=== PATIENT | female | born 1980 | race Caucasian/White ===

== ENCOUNTER 2017-12-02 07:07 | Inpatient (IN) | payer OTHER ==
[2017-12-02 08:17] LABS: Basophils # (Auto) 0.1 K/mm3 (0.0-0.1); Basophils % (Auto) 0.6 % (0.0-1.8); Eosinophils % (Auto) 0.4 % (0.0-4.3); Hematocrit 40.9 % (30.3-42.9); Hemoglobin 14.1 gm/dl (10.1-14.3); Lymphocytes # (Auto) 1.2 K/mm3 (1.2-5.4); Lymphocytes % (Auto) 11.3 % (13.4-35.0); Mean Corpuscular HGB Conc 35 % (30-34); Mean Corpuscular Hemoglobin 32 pg (28-32); Mean Corpuscular Volume 91 fl (79-97); Monocytes # (Auto) 0.8 K/mm3 (0.0-0.8); Monocytes % (Auto) 7.3 % (0.0-7.3); Platelet Count 317 K/mm3 (140-440); Red Blood Count 4.48 M/mm3 (3.65-5.03); Red Cell Distribution Width 13.3 % (13.2-15.2)
[2017-12-02 08:31] LABS: Bilirubin,Urine NEG (Negative); Blood,Urine NEG (Negative); Color,Urine Yellow (Yellow); Nitrite,Urine NEG (Negative); Protein,Urine <15 mg/dL mg/dL (Negative)
[2017-12-02 08:31] LABS: Alanine Aminotransferase 362 units/L (7-56); Albumin 4.7 g/dL (3.9-5); BUN/Creatinine Ratio 18; Blood Urea Nitrogen 11 mg/dL (7-17); Calcium 9.4 mg/dL (8.4-10.2); Hemolysis Index 4; Lipase 46 units/L (13-60)
[2017-12-02] MEDS ORDERED: ZOFRAN IV ONE (10:46)
[2017-12-02] MEDS ORDERED: NACL 0.9% 1000 ML 1,000 ML IV ONE ×2 (10:46→15:00)
[2017-12-02] MEDS ORDERED: SUBLIMAZE IV ONE (10:46)
--- NOTE | 2017-12-02 10:49 | Emergency Department Report ---
Blank Doc - Documentation Documentation: Patient is 37 years old female presented to the ER with 2 day history of right upper quadrant pain and epigastric pain that radiated to her back. Patient stated that her pain associated with nausea and vomiting. She had one episode last month, patient went to [facility] and she did not wait for her results. Patient admitted of drinking alcohol on Saturday. No history of gallbladder stone before or history of pancreatitis. On exam patient does have a right upper quadrant tenderness and epigastric tenderness there is no guarding or rebound tenderness. Patient looks dehydrated. After reviewing her labs which show increase in liver enzymes and a normal lipase patient will need IV fluids and analgesia and nausea medicine. I order a CT abdomen and pelvis with IV contrast for further management patient needed to be moved to the main ED.
[2017-12-02] MEDS ORDERED: NACL ONE (11:12)
--- NOTE | 2017-12-02 13:49 | Cat Scan Report ---
CT ABDOMEN PELVIS WITH CONTRAST: HISTORY: abdominal pain. COMPARISON: none. TECHNIQUE: Helical CT in 1.25mm intervals following IV contrast. Sagittal and coronal reconstructions. FINDINGS: Lung bases: Normal. Liver: Normal. Biliary system: Cholelithiasis is identified. A 1.5 cm stone is noted near the gallbladder neck. Smaller stones are identified in the gallbladder fundus. There is mild gallbladder wall edema and trace pericholecystic fluid. The common bile duct is dilated up to 1.1 cm. No calcified gallstones are identified within the common bile duct. No intrahepatic biliary dilatation. Pancreas: Normal. Spleen: Normal. Kidneys/ureters/bladder: Normal. Adrenal glands: Normal. Aorta: Normal. Intestines: Unremarkable given no oral contrast was administered. No evidence for obstruction or focal inflammation. Appendix: Normal. Pelvic viscera: The uterus is unremarkable. No uterine mass is appreciated. Small bilateral ovarian cysts are identified. A peripherally enhancing cyst in the right ovary measures 1.9 cm. A simple left ovarian cyst measures 1.2 cm. Left ovarian vein varicosity is noted. Ascites: None. Adenopathy: None. Musculoskeletal: Normal. IMPRESSION: Cholelithiasis. There is borderline gallbladder distention and mild gallbladder wall edema and trace pericholecystic fluid. Correlate for early acute cholecystitis. The common bile duct is also dilated up to 1.1 cm although no definite common bile duct stones are detected on CT. Bilateral ovarian cysts as described. Left ovarian vein varicosity.
--- NOTE | 2017-12-02 15:06 | Emergency Department Report ---
ED Abdominal Pain HPI - General Chief Complaint: Abdominal Pain Stated Complaint: ABD PAIN Time Seen by Provider: 12/02/17 10:41 Source: patient Mode of arrival: Ambulatory Limitations: No Limitations - History of Present Illness Initial Comments: This is a 37-year-old female nontoxic, well nourished in appearance, no acute signs of distress presents to the ED with c/o of abdominal pain x2 days. Patient describes pain as aching and sharp with level of 10/10. Patient stated pain is in the right upper quad and epigastric region radiating to the back. Patient also states has associated with nausea or vomiting. Patient had symptoms last month and went to the hospital but eloped. Patient did say she had several alcoholic drinks and Saturday. Patient denies past medical history of gallbladder stone or pancreatitis. He denies any chest pain, shortness of breath, fever, chills, numbness, tingling, headache or stiff neck. Patient denies any allergies or significant past medical history. Patient is Croatian- speaking and daughter is present on exam and interview. MD Complaint: abdominal pain -: days(s) (2) Location: RUQ, epigastric Radiation: back Severity: moderate Severity scale (0 -10): 10 Quality: aching, sharp Consistency: constant Improves With: nothing Worsens With: nothing Associated Symptoms: nausea, vomiting. denies: diarrhea, fever, chills, constipation, dysuria, hematemesis, hematochezia, melena, hematuria, anorexia, syncope - Related Data Home Medications Medication Instructions Recorded Confirmed Last Taken Ibuprofen [Motrin] 400 mg PO Q6H PRN 12/02/17 12/02/17 Unknown Allergies Allergy/AdvReac Type Severity Reaction Status Date / Time No Known Allergies Allergy Verified 12/02/17 10:47 ED Review of Systems ROS: Stated complaint: ABD PAIN Other details as noted in HPI Constitutional: denies: chills, fever Eyes: denies: eye pain, eye discharge, vision change ENT: denies: ear pain, throat pain Respiratory: denies: cough, shortness of breath, wheezing Cardiovascular: denies: chest pain, palpitations Endocrine: no symptoms reported Gastrointestinal: abdominal pain. denies: nausea, diarrhea Genitourinary: denies: urgency, dysuria, discharge Musculoskeletal: denies: back pain, joint swelling, arthralgia Skin: denies: rash, lesions Neurological: denies: headache, weakness, paresthesias Psychiatric: denies: anxiety, depression Hematological/Lymphatic: denies: easy bleeding, easy bruising ED Past Medical Hx - Past Medical History Previous Medical History?: Yes Additional medical history: Vaginal delivery x 4 - Surgical History Past Surgical History?: No - Social History Smoking Status: Former Smoker Substance Use Type: Alcohol, Marijuana - Medications Home Medications: Home Medications Medication Instructions Recorded Confirmed Last Taken Type Ibuprofen [Motrin] 400 mg PO Q6H PRN 12/02/17 12/02/17 Unknown History ED Physical Exam - General Limitations: No Limitations General appearance: alert, in no apparent distress - Head Head exam: Present: atraumatic, normocephalic - Eye Eye exam: Present: normal appearance, PERRL, EOMI Pupils: Present: normal accommodation - ENT ENT exam: Present: normal exam, normal orophraynx, mucous membranes moist, TM's normal bilaterally, normal external ear exam - Neck Neck exam: Present: normal inspection, full ROM. Absent: tenderness, meningismus, lymphadenopathy, thyromegaly - Respiratory Respiratory exam: Present: normal lung sounds bilaterally. Absent: respiratory distress, wheezes, rales, rhonchi, stridor, chest wall tenderness, accessory muscle use, decreased breath sounds, prolonged expiratory - Cardiovascular Cardiovascular Exam: Present: regular rate, normal rhythm, normal heart sounds. Absent: irregular rhythm, systolic murmur, diastolic murmur, rubs, gallop - GI/Abdominal GI/Abdominal exam: Present: soft, tenderness (RUQ ), normal bowel sounds. Absent: distended, guarding, rebound, rigid, diminished bowel sounds - Expanded GI/Abdominal Exam Expanded GI/Abdominal exam: Present: Wolff's sign. Absent: psoas sign, obturator sign, Rovsing's sign, tenderness at Mcburney's Point - Rectal Rectal exam: Present: deferred - Extremities Exam Extremities exam: Present: normal inspection, full ROM, normal capillary refill. Absent: tenderness, pedal edema, joint swelling, calf tenderness - Back Exam Back exam: Present: normal inspection, full ROM. Absent: tenderness, CVA tenderness (R), CVA tenderness (L), muscle spasm, paraspinal tenderness, vertebral tenderness, rash noted - Neurological Exam Neurological exam: Present: alert, oriented X3, CN II-XII intact, normal gait, reflexes normal - Psychiatric Psychiatric exam: Present: normal affect, normal mood - Skin Skin exam: Present: warm, dry, intact, normal color. Absent: rash ED Course Vital Signs 12/02/17 12/02/17 07:42 14:36 Temperature 98 F 98.9 F Pulse Rate 99 H 76 Respiratory 16 16 Rate Blood Pressure 108/74 Blood Pressure 80/52 [Left] O2 Sat by Pulse 99 100 Oximetry - Reevaluation(s) Reevaluation #1: 12/02/17 15:07 Patient is speaking in full sentences with no signs of distress noted. - Consultations Consultation #1: 12/02/17 15:07 Patient has been consulted with Dr. Sierra about patient history, physical exam , and labs and examined and screened patient and agrees to ED plan of care and discharge plan of care. Consultation #2: 12/02/17 15:07 Dr. Vásquez (general surgeon) was consulted about patient history, physical exam , and labs/imaging studies and stated he will assess patient and admit patient. ED Medical Decision Making - Lab Data Result diagrams: 12/02/17 07:56 12/02/17 07:56 - Medical Decision Making This is a 37-year-old female that presents with cholelithiasis and cholecystitis. Patient is stable and was examined by me and Dr. Sierra. Labs obtain CT with contrast indicates cholelithiasis with acute cholecystitis. Dictated by radiologist. Patient was notified of CT findings With no questions noted by the patient. Patient's daughter is currently present at the bedside for translation. Dr. Vásquez was consulted and accepts patient to his services. At time of admission, the patient does not seem toxic or ill in appearance. No acute signs of distress noted. Patient agrees to admission treatment plan of care. No further questions noted by the patient. Critical care attestation.: If time is entered above; I have spent that time in minutes in the direct care of this critically ill patient, excluding procedure time. ED Disposition Clinical Impression: Cholecystitis Cholelithiasis Qualifiers: Cholelithiasis location: gallbladder Cholecystitis presence: with cholecystitis Cholecystitis acuity: acute Biliary obstruction: without biliary obstruction Qualified Code(s): K80.00 - Calculus of gallbladder with acute cholecystitis without obstruction Disposition: DC-09 OP ADMIT IP TO THIS HOSP Is pt being admited?: Yes Condition: Stable Instructions: Abdominal Pain (ED) Referrals: PRIMARY CARE, [Primary Care Provider] - 3-5 Days
[2017-12-02] MEDS ORDERED: MILK OF MAGNESIA PO PRN (15:54)
[2017-12-02] MEDS ORDERED: ZOFRAN IV PRN (15:54)
[2017-12-02] MEDS ORDERED: MORPHINE IV PRN (15:54)
[2017-12-02] MEDS ORDERED: NORCO 5/325 PO PRN (15:54)
[2017-12-02] MEDS ORDERED: TYLENOL PO PRN (15:54)
[2017-12-02] MEDS ORDERED: DULCOLAX PR PRN (15:54)
[2017-12-02] MEDS ORDERED: D5W/0.45% NACL/KCL 20 MEQ 20 MEQ/1,000 ML BAG IV SCH (16:00)
--- NOTE | 2017-12-02 16:05 | Consultation ---
History of Present Illness Consult date: 12/02/17 Reason for consult: abdominal pain Requesting physician: BLANCA RHODES Chief complaint: abdominal pain - History of present illness History of present illness: 37yo F with 1 month history of intermittent RUQ pain presents with acute onset of RUQ after dinner last night. Pain radiates into the back. +C/N/V. No F. Usually pain will last 2 days. Denies any other issues. Past History Past Medical History: No medical history Past Surgical History: No surgical history Social history: other (very occasional alcohol and smoking. works in [employer] at night) Family history: no significant family history Medications and Allergies Allergies Allergy/AdvReac Type Severity Reaction Status Date / Time No Known Allergies Allergy Verified 12/02/17 10:47 Home Medications Medication Instructions Recorded Confirmed Last Taken Type Ibuprofen [Motrin] 400 mg PO Q6H PRN 12/02/17 12/02/17 Unknown History Review of Systems - Constitutional chills, no fever, no sweats, no night sweats - EENT Ears, nose, mouth and throat: no nasal congestion, no sinus pressure, no sore throat, no headache - Cardiovascular no chest pain - Respiratory shortness of breath (due to RUQ pain), no cough, no cough with sputum - Gastrointestinal abdominal pain (RUQ), nausea (none now), vomiting, no diarrhea, no hematemesis, no BRBPR, no melena, no hematochezia, no heartburn, no jaundice - Genitourinary Genitourinary: no dysuria - Muskuloskeletal other (right sided back pain) - Integumentary no rash, no jaundice Exam Vital Signs Temp Pulse Resp BP Pulse Ox 98 F 99 H 16 108/74 99 12/02/17 07:42 12/02/17 07:42 12/02/17 07:42 12/02/17 07:42 12/02/17 07:42 - General physical appearance Positive: well developed, well nourished, no distress, no pain - Eyes Positive: normal occular movement, other (anicteric) - ENT Positive: other (slightly yellow sublingual area?) - Respiratory Positive: normal expansion, normal respiratory effort, clear to auscultation - Cardiovascular Rhythm: regular - Abdomen Abdomen: Present: soft, tender (minimal on right side - more upper than lower), bowel sounds hypoactive. Absent: distended, guarding, rigid, surgical scars - Genitourinary Female Genitourinary: deferred - Integumentary no rash - Neurologic Neurologic: alert and oriented to time, place and person, motor strength and sensation are grossly intact - Psychiatric Psychiatric: appropriate mood/affect, intact judgment & insight Results - Labs 12/02/17 07:56 12/02/17 07:56 Abnormal lab results 12/02/17 12/02/17 12/02/17 Range/Units 07:56 07:56 08:01 MCHC 35 H (30-34) % Lymph % (Auto) 11.3 L (13.4-35.0) % Seg Neutrophils % 80.4 H (40.0-70.0) % Seg Neutrophils # 8.8 H (1.8-7.7) K/mm3 Chloride 95.5 L (98-107) mmol/L Creatinine 0.6 L (0.7-1.2) mg/dL Glucose 137 H (65-100) mg/dL Total Bilirubin 1.90 H (0.1-1.2) mg/dL AST 514 H (5-40) units/L ALT 362 H (7-56) units/L Alkaline Phosphatase 214 H (35-129) units/L Urine pH 8.0 H (5.0-7.0) Diabetes panel 12/02/17 Range/Units 07:56 Sodium 138 (137-145) mmol/L Potassium 4.5 (3.6-5.0) mmol/L Chloride 95.5 L (98-107) mmol/L Carbon Dioxide 28 (22-30) mmol/L BUN 11 (7-17) mg/dL Creatinine 0.6 L (0.7-1.2) mg/dL Glucose 137 H (65-100) mg/dL Calcium 9.4 (8.4-10.2) mg/dL AST 514 H (5-40) units/L ALT 362 H (7-56) units/L Alkaline Phosphatase 214 H (35-129) units/L Total Protein 7.6 (6.3-8.2) g/dL Albumin 4.7 (3.9-5) g/dL Calcium panel 12/02/17 Range/Units 07:56 Calcium 9.4 (8.4-10.2) mg/dL Albumin 4.7 (3.9-5) g/dL Pituitary panel 12/02/17 Range/Units 07:56 Sodium 138 (137-145) mmol/L Potassium 4.5 (3.6-5.0) mmol/L Chloride 95.5 L (98-107) mmol/L Carbon Dioxide 28 (22-30) mmol/L BUN 11 (7-17) mg/dL Creatinine 0.6 L (0.7-1.2) mg/dL Glucose 137 H (65-100) mg/dL Calcium 9.4 (8.4-10.2) mg/dL Adrenal panel 12/02/17 Range/Units 07:56 Sodium 138 (137-145) mmol/L Potassium 4.5 (3.6-5.0) mmol/L Chloride 95.5 L (98-107) mmol/L Carbon Dioxide 28 (22-30) mmol/L BUN 11 (7-17) mg/dL Creatinine 0.6 L (0.7-1.2) mg/dL Glucose 137 H (65-100) mg/dL Calcium 9.4 (8.4-10.2) mg/dL Total Bilirubin 1.90 H (0.1-1.2) mg/dL AST 514 H (5-40) units/L ALT 362 H (7-56) units/L Alkaline Phosphatase 214 H (35-129) units/L Total Protein 7.6 (6.3-8.2) g/dL Albumin 4.7 (3.9-5) g/dL - Imaging CT scan - abdomen: report reviewed, image reviewed Assessment and Plan - Patient Problems (1) Cholecystitis Current Visit: Yes Status: Acute Plan to address problem: I think the patient most likely has an acute exacerbation of her chronic cholecytitis. Does not appear ill or toxic. May have sludge or stone in duct. Will recheck labs in AM. If rising, will get MRCP and GI consult. Will also get US today to better assess GB and CBD. If labs improving, then plan for lap charla with IOC. Will discuss in detail tomorrow with official educational sign language interpreter. Today , family member assisted with translation. Time=60min (2) Elevated LFTs Current Visit: Yes Status: Acute Plan to address problem: possibly sludge or stone in duct. Will get better assessment with US today. Repeat labs in AM.
--- NOTE | 2017-12-02 17:04 | Ultrasound Report ---
FINAL REPORT EXAM: US ABDOMEN LIMITED HISTORY: RUQ pain TECHNIQUE: Right upper quadrant ultrasound PRIORS: CT 12/02/2017 FINDINGS: Examination of the gallbladder demonstrates numerous echogenic mobile foci internally consistent with gallstones. The gallbladder wall is mildly thickened measuring 3.2 mm. There is no evidence for distention or pericholecystic fluid. No sonographic Wolff's sign is elicited. Common bile duct is mildly dilated in diameter measuring 7.4 mm. No evidence for calculus within the common bile duct is seen. The liver is normal and homogeneous in echogenicity without focal abnormality or intrahepatic biliary dilatation. The pancreas is normal in thickness without focal abnormality or pancreatic duct dilatation. The head and distal pancreatic tail is partially obscured due to bowel gas. The aorta is normal in diameter measuring 1.7 cm in its proximal portion. The right kidney is normal in size without calculi or hydronephrosis. Right kidney measures 10.5 cm in craniocaudal length. IMPRESSION: 1. Thickened gallbladder wall. Gallbladder contains numerous mobile gallstones 2. Dilated common bile duct with no evidence for obstructing choledocholithiasis
[2017-12-02] MEDS ORDERED: PEPCID IV ONE (22:19)
[2017-12-02] MEDS: PEPCID IV SCH (22:21)
[2017-12-03 05:23] LABS: Alanine Aminotransferase 385 units/L (7-56); Albumin 3.4 g/dL (3.9-5); BUN/Creatinine Ratio 15; Blood Urea Nitrogen 9 mg/dL (7-17); Calcium 7.6 mg/dL (8.4-10.2); Hemolysis Index 8; Lipase 50 units/L (13-60)
[2017-12-03] MEDS: PEPCID IV SCH (10:29)
--- NOTE | 2017-12-03 15:26 | Discharge Summary ---
Providers - Providers Date of Admission: 12/02/17 15:54 Date of discharge: 12/03/17 Attending physician: LUCY DOBBS MD Primary care physician: MENTAL HEALTH THERAPIST Hospitalization Reason for admission: abdominal pain Pertinent studies: CT abd/pelvis and RUQ US Procedures: none Hospital course: She had an uneventful hospital course. Repeat labs in the morning showed normalization. I examined and interviewed the patient twice on the day of discharge. The 1st time, I spoke via spanish medical interpreter number [id number]. Patient reported that her pain result. She was hungry and thirsty. She previously mentioned on the day of admission that she would like to avoid surgery. I confirm that with her again. I offered her 2 options. We can try lifestyle and dietary changes. However, if her pain comes back, then we should consider surgery. Or, we can just move forward with surgery. We discussed the risks and benefits of both. She elected to try dietary changes. Therefore, I started her on a full liquid diet and I told her I would come back to reassess her in the afternoon. In the afternoon, I spoke via spanish medical interpreter number [id number]. Patient reported she had no problems with the liquids. She had no recurrence of pain. As promised, I gave printed out information on foods that are generally safe for the gallbladder and foods to avoid. I gave this to her daughter who is Kinyarwanda- speaking and confirm that she understood. Patient confirmed that she would like to go home. Patient was discharged home. No prescriptions were given. Disposition: TO HOME OR SELFCARE - Discharge Diagnoses (1) Cholecystitis Status: Acute Comment: Acute exacerbation on chronic cholecystitis (2) Elevated LFTs Status: Acute Comment: Resolving Core Measure Documentation - Palliative Care Palliative Care/ Comfort Measures: Not Applicable - Core Measures Any of the following diagnoses?: none - VTE Discharge Requirements Deep Vein Thrombosis/Pulmonary Embolism Present on Admission: No Exam - Constitutional Vitals: Temp Pulse Resp BP Pulse Ox 98.2 F 71 18 87/53 96 12/03/17 07:42 12/03/17 07:42 12/03/17 07:42 12/03/17 07:42 12/03/17 07:42 General appearance: Present: no acute distress, well-nourished - EENT Eyes: Present: PERRL, EOM intact. Absent: scleral icterus - Respiratory Respiratory effort: normal - Cardiovascular Rhythm: regular - Abdominal General gastrointestinal: Present: soft, non-tender, non-distended - Integumentary Integumentary: Present: clear, warm, dry - Psychiatric Psychiatric: appropriate mood/affect, intact judgment & insight - Neurologic Neurologic: CNII-XII intact, moves all extremities Plan Follow up with: PRIMARY CARE, [Primary Care Provider] - 3-5 Days
[2017-12-03 16:22] VITALS: BP 101/58
== END 2017-12-03 20:24 | disposition home or self-care (01) | DRG 446 ==
LOC: ED 07:07 → 3B-SURG 15:54
PROVIDERS: ADMIT Surgery; ATTEND Surgery
DX: K81.9 Cholecystitis, unspecified (principal); Z87.891 Personal history of nicotine dependence
CPT/HCPCS: 36415; 74177; 76705; 80053; 81001; 82150; 83690; 84703; 85025; 96374; 96375; J2405; J3010; J7030; Q9967

== ENCOUNTER 2017-12-05 02:03 | Inpatient (IN) | payer SELFPAY ==
[2017-12-05 04:35] LABS: Basophils % (Auto) 0.3 % (0.0-1.8); Eosinophils # (Auto) 0.1 K/mm3 (0.0-0.4); Eosinophils % (Auto) 0.7 % (0.0-4.3); Hematocrit 42.3 % (30.3-42.9); Hemoglobin 14.3 gm/dl (10.1-14.3); Lymphocytes # (Auto) 1.4 K/mm3 (1.2-5.4); Lymphocytes % (Auto) 8.9 % (13.4-35.0); Mean Corpuscular HGB Conc 34 % (30-34); Mean Corpuscular Hemoglobin 31 pg (28-32); Mean Corpuscular Volume 93 fl (79-97); Monocytes # (Auto) 0.7 K/mm3 (0.0-0.8); Monocytes % (Auto) 4.7 % (0.0-7.3); Platelet Count 353 K/mm3 (140-440); Red Blood Count 4.57 M/mm3 (3.65-5.03); Red Cell Distribution Width 13.4 % (13.2-15.2)
[2017-12-05 04:57] LABS: Alanine Aminotransferase 264 units/L (7-56); BUN/Creatinine Ratio 10; Blood Urea Nitrogen 6 mg/dL (7-17); Calcium 8.4 mg/dL (8.4-10.2); Hemolysis Index 6
--- NOTE | 2017-12-05 05:30 | XRay Report ---
FINAL REPORT EXAM: XR CHEST ROUTINE 2V HISTORY: sob TECHNIQUE: PA and lateral views of the chest were submitted. FINDINGS: Heart size and mediastinum appear normal. The lungs are clear. Pleural fluid is not seen. The bones and soft tissues are unremarkable. IMPRESSION: Within normal limits.
[2017-12-05] MEDS ORDERED: ZOFRAN IV ONE (06:43)
[2017-12-05] MEDS ORDERED: NACL 0.9% 1000 ML 1,000 ML IV ONE (06:43)
--- NOTE | 2017-12-05 06:48 | Emergency Department Report ---
ED Abdominal Pain HPI - General Chief Complaint: Abdominal Pain Stated Complaint: ABD PAIN Time Seen by Provider: 12/05/17 06:36 Source: patient, family Mode of arrival: Ambulatory Limitations: No Limitations - History of Present Illness Initial Comments: Patient is 37 years old female presented to the ER with abdominal pain nausea and vomiting. Patient was recently discharged from the hospital with a diagnosis of acute cholecystitis. Our surgeon give had 2 options either to do surgery or dietary modification. Patient elected to do a battery and lifestyle modification. Patient stated that this is not helping her and her pain is just getting worse and she is ready for surgery now. MD Complaint: abdominal pain -: Gradual Location: RUQ, epigastric Radiation: none Migration to: no migration Severity: moderate Severity scale (0 -10): 6 Quality: stabbing Consistency: constant Associated Symptoms: nausea, vomiting - Related Data Home Medications Medication Instructions Recorded Confirmed Last Taken Ibuprofen [Motrin] 400 mg PO Q6H PRN 12/02/17 12/02/17 Unknown Allergies Allergy/AdvReac Type Severity Reaction Status Date / Time No Known Allergies Allergy Verified 12/02/17 10:47 ED Review of Systems ROS: Stated complaint: ABD PAIN Other details as noted in HPI Comment: All other systems reviewed and negative Respiratory: denies: cough, shortness of breath Cardiovascular: denies: chest pain Gastrointestinal: abdominal pain, nausea, vomiting. denies: diarrhea Neurological: denies: headache, weakness, numbness ED Past Medical Hx - Past Medical History Previous Medical History?: No Hx Congestive Heart Failure: No Hx Diabetes: No Hx Asthma: No Hx COPD: No Additional medical history: Vaginal delivery x 4 - Surgical History Past Surgical History?: No - Social History Smoking Status: Never Smoker Substance Use Type: None - Medications Home Medications: Home Medications Medication Instructions Recorded Confirmed Last Taken Type Ibuprofen [Motrin] 400 mg PO Q6H PRN 12/02/17 12/02/17 Unknown History ED Physical Exam - General Limitations: No Limitations General appearance: alert, in no apparent distress - Head Head exam: Present: atraumatic, normocephalic - Eye Eye exam: Present: normal appearance - ENT ENT exam: Present: mucous membranes dry - Neck Neck exam: Present: normal inspection, full ROM. Absent: tenderness, meningismus, lymphadenopathy - Respiratory Respiratory exam: Present: normal lung sounds bilaterally - Cardiovascular Cardiovascular Exam: Present: regular rate, normal rhythm, normal heart sounds - GI/Abdominal GI/Abdominal exam: Present: soft, tenderness (right upper quadrant and epigastric), normal bowel sounds. Absent: guarding, rebound, rigid, mass, bruit , pulsatile mass - Extremities Exam Extremities exam: Present: normal inspection, full ROM, normal capillary refill - Back Exam Back exam: Present: normal inspection, full ROM. Absent: tenderness, CVA tenderness (R), CVA tenderness (L), muscle spasm, paraspinal tenderness - Neurological Exam Neurological exam: Present: alert, oriented X3, CN II-XII intact, normal gait - Skin Skin exam: Present: warm, dry, intact ED Course Vital Signs 12/05/17 12/05/17 12/05/17 03:40 05:54 05:55 Temperature 98 F 98.8 F Pulse Rate 85 75 Respiratory 18 20 20 Rate Blood Pressure 105/70 Blood Pressure 98/45 [Left] O2 Sat by Pulse 99 100 Oximetry ED Medical Decision Making - Lab Data Result diagrams: 12/05/17 04:02 12/05/17 04:02 - Medical Decision Making Discussed with Dr. Barney, I presented the patient to him, Dr. Barney is coming to evaluate the patient in the ER. Critical care attestation.: If time is entered above; I have spent that time in minutes in the direct care of this critically ill patient, excluding procedure time. ED Disposition Clinical Impression: Acute cholecystitis Disposition: OP ADMIT IP TO THIS HOSP Is pt being admited?: Yes Condition: Stable Instructions: Abdominal Pain (ED) Referrals: PRIMARY CARE, [Primary Care Provider] - 3-5 Days
[2017-12-05] MEDS ORDERED: ZOSYN/NS 3.375GM/50ML 3.375 GM/50 ML BAG IV SCH (08:00)
[2017-12-05] MEDS ORDERED: TYLENOL PO PRN (10:50)
[2017-12-05] MEDS ORDERED: MORPHINE IV PRN (10:50)
[2017-12-05] MEDS ORDERED: MILK OF MAGNESIA PO PRN (10:50)
[2017-12-05] MEDS ORDERED: DULCOLAX PR PRN (10:50)
[2017-12-05] MEDS ORDERED: ZOFRAN IV PRN (10:50)
[2017-12-05] MEDS ORDERED: NORCO 5/325 PO PRN (10:50)
--- NOTE | 2017-12-05 11:03 | History and Physical Report ---
History of Present Illness Date of examination: 12/05/17 Date of admission: 12/05/2017 Chief complaint: recurrent abdominal pain History of present illness: 37yo F that is well known to me. She was recently admitted to the hospital for acute exaceration of chronic cholecystitis. Her pain resolved the next day and she wanted to try dietary changes instead of surgery. Daughter reports that she had the same meal last night that she had before and the pain came back. Pt is now ready for surgery. No other changes in symptoms. 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 denies: smoking Family history: no significant family history Medications and Allergies Allergies Allergy/AdvReac Type Severity Reaction Status Date / Time No Known Allergies Allergy Verified 12/02/17 10:47 Home Medications Medication Instructions Recorded Confirmed Last Taken Type Ibuprofen [Motrin] 400 mg PO Q6H PRN 12/02/17 12/05/17 Unknown History Active Meds: Active Medications Acetaminophen (Tylenol) 650 mg PO Q4H PRN PRN Reason: Pain MILD(1-3)/Fever >100.5/GREENE Acetaminophen/Hydrocodone Bitart (Adel 5/325) 2 each PO Q6H PRN PRN Reason: Pain, Moderate (4-6) Bisacodyl (Dulcolax) 10 mg VA QDAY PRN PRN Reason: Constipation unrelieved by MOM Potassium Chloride/Dextrose/Sod Cl (D5w/0.45% Nacl/Kcl 20 Meq) 20 meq in 1,000 mls @ 75 mls/hr IV DIRECT SHANTHI Magnesium Hydroxide (Milk Of Magnesia) 30 ml PO Q4H PRN PRN Reason: Constipation Morphine Sulfate (Morphine) 2 mg IV Q4H PRN PRN Reason: Pain , Severe (7-10) Ondansetron HCl (Zofran) 4 mg IV Q8H PRN PRN Reason: Nausea And Vomiting Review of Systems - Constitutional no fever, no chills, no sweats, no night sweats, no chronic pain - EENT Ears, nose, mouth and throat: no nasal congestion, no sinus pressure - Cardiovascular no chest pain - Respiratory no cough, no shortness of breath - Gastrointestinal abdominal pain, nausea, dyspepsia/bloating, no vomiting, no change in bowel habits, no hematemesis, no coffee ground emesis, no BRBPR, no melena, no hematochezia, no heartburn - Genitourinary Genitourinary: no dysuria - Muskuloskeletal other (right mid back pain) - Integumentary no rash, no pruritis, no jaundice - Hematologic/Lymphatic no easy bruising, no easy bleeding Exam Vital Signs Temp Pulse Resp BP Pulse Ox 98 F 85 18 105/70 99 12/05/17 03:40 12/05/17 03:40 12/05/17 03:40 12/05/17 03:40 12/05/17 03:40 - General physical appearance Positive: well developed, well nourished, no distress, no pain - Eyes Positive: normal occular movement, other (anicteric) - Respiratory Positive: normal expansion, normal respiratory effort, clear to auscultation - Cardiovascular Rhythm: regular - Breasts Breasts: deferred - Abdomen Abdomen: Present: soft, tender (in RUQ), bowel sounds normal. Absent: distended , guarding, rigid, surgical scars - Integumentary no rash, other (no jaundice) - Neurologic Neurologic: alert and oriented to time, place and person, motor strength and sensation are grossly intact - Psychiatric Psychiatric: appropriate mood/affect, intact judgment & insight Results - Labs 12/05/17 04:02 12/05/17 04:02 Abnormal lab results 12/05/17 12/05/17 Range/Units 04:02 04:02 WBC 15.2 H (4.5-11.0) K/mm3 Lymph % (Auto) 8.9 L (13.4-35.0) % Seg Neutrophils % 85.4 H (40.0-70.0) % Seg Neutrophils # 12.9 H (1.8-7.7) K/mm3 Sodium 135 L (137-145) mmol/L Chloride 96.4 L (98-107) mmol/L BUN 6 L (7-17) mg/dL Creatinine 0.6 L (0.7-1.2) mg/dL Glucose 168 H (65-100) mg/dL AST 160 H (5-40) units/L ALT 264 H (7-56) units/L Alkaline Phosphatase 231 H (35-129) units/L Diabetes panel 12/05/17 Range/Units 04:02 Sodium 135 L (137-145) mmol/L Potassium 4.2 (3.6-5.0) mmol/L Chloride 96.4 L (98-107) mmol/L Carbon Dioxide 27 (22-30) mmol/L BUN 6 L (7-17) mg/dL Creatinine 0.6 L (0.7-1.2) mg/dL Glucose 168 H (65-100) mg/dL Calcium 8.4 (8.4-10.2) mg/dL AST 160 H (5-40) units/L ALT 264 H (7-56) units/L Alkaline Phosphatase 231 H (35-129) units/L Total Protein 7.1 D (6.3-8.2) g/dL Albumin 4.0 (3.9-5) g/dL Calcium panel 12/05/17 Range/Units 04:02 Calcium 8.4 (8.4-10.2) mg/dL Albumin 4.0 (3.9-5) g/dL Pituitary panel 12/05/17 Range/Units 04:02 Sodium 135 L (137-145) mmol/L Potassium 4.2 (3.6-5.0) mmol/L Chloride 96.4 L (98-107) mmol/L Carbon Dioxide 27 (22-30) mmol/L BUN 6 L (7-17) mg/dL Creatinine 0.6 L (0.7-1.2) mg/dL Glucose 168 H (65-100) mg/dL Calcium 8.4 (8.4-10.2) mg/dL Adrenal panel 12/05/17 Range/Units 04:02 Sodium 135 L (137-145) mmol/L Potassium 4.2 (3.6-5.0) mmol/L Chloride 96.4 L (98-107) mmol/L Carbon Dioxide 27 (22-30) mmol/L BUN 6 L (7-17) mg/dL Creatinine 0.6 L (0.7-1.2) mg/dL Glucose 168 H (65-100) mg/dL Calcium 8.4 (8.4-10.2) mg/dL Total Bilirubin 0.80 (0.1-1.2) mg/dL AST 160 H (5-40) units/L ALT 264 H (7-56) units/L Alkaline Phosphatase 231 H (35-129) units/L Total Protein 7.1 D (6.3-8.2) g/dL Albumin 4.0 (3.9-5) g/dL Assessment and Plan - Patient Problems (1) Cholecystitis Onset Date: ~12/04/17 Current Visit: No Status: Acute Plan to address problem: Pt stable. I think this is again acute exacerbation of her chronic cholecystitis. Will move forward with plans for lap charla. Obtain consent and schedule later today after she is admitted to a room and we can get a formal translation done. time=45min
[2017-12-05] MEDS ORDERED: D5W/0.45% NACL/KCL 20 MEQ 20 MEQ/1,000 ML BAG IV SCH (11:30)
[2017-12-05 12:47] LABS: Bacteria,Urine 2+ /HPF (Negative); Bilirubin,Urine NEG (Negative); Blood,Urine NEG (Negative); Color,Urine Yellow (Yellow); Mucus,Urine FEW /HPF; Nitrite,Urine NEG (Negative); Protein,Urine <15 mg/dL mg/dL (Negative)
--- NOTE | 2017-12-05 20:04 | Event Note ---
Date: 12/05/17 I went back later in the day to see how the patient was doing. Just like before , her pain completely resolved with time. This is consistent with an acute exacerbation of her chronic cholecystitis. 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 We discussed both long and short term risks. I emphasized that this is a common procedure and most people do very well, but complications can happen with any surgery. She stated that her sister in [place] has the same problem and takes a medication to control it. We discussed Ursodiol. I told her that it is up to 50 % effective but she will have to stay on it the rest of her life. I also mentioned that not only does she have stones, but she also has chronic inflammation. She would like to try the medicine and go home. I confirmed with her that she would like a prescription and go home. I told her that I would recommend that she have the surgery as I do not think this will work very well. I spoke with the ED attending, Dr. Carlos, and asked him to discharge the patient (per her request). She will be sent home with small amount of Verm[place] (I told her that I will only be able to give her one prescription), zofran, and Ursodiol ( Actigall). Time=45min
[2017-12-05 20:33] VITALS: BP 90/53
== END 2017-12-05 20:48 | disposition home or self-care (01) | DRG 446 ==
LOC: ED 02:03 → 3A 09:13 → 3B-SURG 18:38 → 3A 20:48 → 3B-SURG 12-06 09:24
PROVIDERS: ADMIT Surgery; ATTEND Surgery
DX: K81.0 Acute cholecystitis (principal); K81.1 Chronic cholecystitis
CPT/HCPCS: 36415; 71046; 80053; 81001; 84703; 85025; 93005; 93010; 96361; 96374; J2405; J2543; J7030